=== PATIENT | female | born 2000 | race Two or more races ===

== ENCOUNTER 2024-02-23 17:15 | Emergency (ER) | payer MEDICAID, OTHER ==
[~2024-02-23] VITALS: Ht 160 cm; Wt 57.8 kg
[2024-02-23 20:08] LABS: Urine Bacteria FEW /hpf (None Seen); Urine Blood TRACE /uL (Negative); Urine Clarity Turbid (Clear); Urine Color Light-Yellow (Yellow); Urine Mucus FEW (None Seen); Urine Protein, UAD TRACE (Negative); Urine Specific Gravity 1.024 (1.001-1.035); Urine Urobilinogen Normal (Negative); Urine WBC 1 /hpf (0 - 5)
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
[2024-02-23 21:17] VITALS: BP 100/63; PULSE 75; RESP 16; TEMP 98.4; O2SAT 100
== END 2024-02-23 21:19 | disposition home or self-care (01) ==
LOC: ER 17:15
DX: R51.9 Headache, unspecified (principal); Z88.0 Allergy status to penicillin; Z88.1 Allergy status to other antibiotic agents; V89.2XXA Person injured in unspecified motor-vehicle accident, traffic, initial encounter; Y93.89 Activity, other specified; Y92.89 Other specified places as the place of occurrence of the external cause; Y99.8 Other external cause status
CPT/HCPCS: 70450; 71046; 81001; 81025